=== PATIENT | male | born 1970 | race Caucasian/White ===

== ENCOUNTER 2017-10-16 10:05 | Emergency (ER) | payer OTHER ==
[~2017-10-16] VITALS: Ht 167.6 cm; Wt 72.6 kg
[2017-10-16 10:20] VITALS: BP 124/86
[2017-10-16] MEDS ORDERED: LAMICTAL100 MG PO (10:28)
[2017-10-16] MEDS ORDERED: KEPPRA 100100 MG/M1 PO (10:28)
[2017-10-16] MEDS ORDERED: KEFLEX500 M1 PO (10:33)
== END 2017-10-16 11:25 | disposition home or self-care (01) ==
LOC: M.ERS 10:05 → EDSEX 10:05 → M.ERS 11:25
DX: S51.812A Laceration without foreign body of left forearm, initial encounter (principal); W26.0XXA Contact with knife, initial encounter; Y93.89 Activity, other specified; Y92.89 Other specified places as the place of occurrence of the external cause; Y99.8 Other external cause status